=== PATIENT | male | born 1970 ===

== ENCOUNTER 2017-10-03 14:55 | Emergency (ER) | payer OTHER ==
[2017-10-03 15:11] VITALS: BP 161/90; PULSE 76; RESP 18; TEMP 98.3; O2SAT 99
--- NOTE | 2017-10-03 15:44 | C.PDOC ---
History Of Present Illness 47 year old male presents to the ED c/o left knee pain. Patient reports he fell after he misstepped on some stairs and landed on his hand and knee. Patient reports his pain worsens with left knee flexion. Patient is ambulatory in the ED. Patient denies LOC, weakness, numbness, SOB, CP. Time Seen by Provider: 10/03/17 15:30 Chief Complaint (Nursing): Lower Extremity Problem/Injury History Per: Patient History/Exam Limitations: no limitations Onset/Duration Of Symptoms: Days Current Symptoms Are (Timing): Still Present Recent travel outside of the [place]: No Additional History Per: Patient - Knee Description Of Injury: Fell, Twisted Currently Unable To: Bend Or Move Past Medical History Reviewed: Historical Data, Nursing Documentation, Vital Signs Vital Signs: Last Vital Signs Temp 98.3 F 10/03/17 15:09 Pulse 76 10/03/17 15:09 Resp 18 10/03/17 15:09 BP 161/90 H 10/03/17 15:09 Pulse Ox 99 10/03/17 16:13 - Medical History PMH: No Chronic Diseases Surgical History: No Surg Hx Family History: States: Unknown Family Hx - Social History Hx Alcohol Use: Yes Hx Substance Use: No Review Of Systems Constitutional: Negative for: Fever, Chills Cardiovascular: Negative for: Chest Pain Respiratory: Negative for: Shortness of Breath Gastrointestinal: Negative for: Abdominal Pain Musculoskeletal: Positive for: Leg Pain Skin: Negative for: Rash Neurological: Negative for: Weakness, Numbness Physical Exam - Physical Exam Appears: Non-toxic, No Acute Distress Skin: Normal Color, Warm, Dry Head: Atraumatic, Normacephalic Eye(s): bilateral: Normal Inspection Nose: No Discharge Oral Mucosa: Moist Extremity: Normal ROM, Tenderness (left knee ), Capillary Refill (< 2 seconds), Swelling (left knee) Pulses: Left Dorsalis Pedis: Normal, Right Dorsalis Pedis: Normal Neurological/Psych: Oriented x3, Normal Motor, Normal Sensation Gait: Steady ED Course And Treatment O2 Sat by Pulse Oximetry: 99 (On RA) Pulse Ox Interpretation: Normal - Other Rad Left Knee X-Ray X-Ray: Interpreted by Me, Viewed By Me Interpretation: No fracture or dislocation Medical Decision Making Medical Decision Making: Impression: Left knee pain Plan: * Left knee X-Ray * Motrin 600 mg PO * Tylenol 650 mg PO Disposition Counseled Patient/Family Regarding: Studies Performed, Diagnosis, Need For Followup - Disposition Referrals: [facility] [Outside] [facility] [Outside] Disposition: HOME/ ROUTINE Disposition Time: 16:12 Condition: IMPROVED Prescriptions: Ibuprofen [Motrin] 600 mg PO Q6 #30 tab Instructions: High Blood Pressure (DC), Knee Sprain (DC) Forms: [employer] (Slovak) Print Language: NIUEAN - Clinical Impression Clinical Impression: Knee sprain, Hypertension - Scribe Statement The provider has reviewed the documentation as recorded by the Scribe Russell Vega All medical record entries made by the Scribe were at my direction and personally dictated by me. I have reviewed the chart and agree that the record accurately reflects my personal performance of the history, physical exam, medical decision making, and the department course for this patient. I have also personally directed, reviewed, and agree with the discharge instructions and disposition.
--- NOTE | 2017-10-03 16:47 | RAD ---
PROCEDURE: Left Knee Radiographs. HISTORY: Pain. COMPARISON: None. FINDINGS: BONES: Normal. No fracture. JOINTS: Mild irregularity posterior patellar cortical surface consistent with osteoarthritis. Medial and lateral compartments are grossly preserved. No articular erosion. JOINT EFFUSION: Small effusion. OTHER FINDINGS: None. IMPRESSION: Small joint effusion common nonspecific. Patellofemoral osteoarthritis.
== END 2017-10-03 16:30 | disposition home or self-care (01) ==
LOC: C.ER 14:55
DX: S83.92XA Sprain of unspecified site of left knee, initial encounter (principal); W10.9XXA Fall (on) (from) unspecified stairs and steps, initial encounter; I10 Essential (primary) hypertension